=== PATIENT | female | born 1950 | race Caucasian/White ===

== ENCOUNTER 2018-07-22 09:05 | Outpatient (CLI) | payer MEDICARE, BC ==
[2014-12-19 12:13] VITALS: O2SAT 97
== END 2018-07-22 09:06 | disposition home or self-care (01) | DRG 561 ==
LOC: CONVCARE 09:05
PROVIDERS: ATTEND Orthopaedic Surgery
DX: S92.331D Displaced fracture of third metatarsal bone, right foot, subsequent encounter for fracture with routine healing (principal)
CPT/HCPCS: 73630